=== PATIENT | male | born 1965 | race Caucasian/White ===

== ENCOUNTER 2017-09-17 10:24 | Outpatient (CLI) | payer BC | END 2017-09-17 10:25 | disposition home or self-care (01) | LOC: EKG 10:24 | PROVIDERS: ATTEND Urology | DX: N40.1 Benign prostatic hyperplasia with lower urinary tract symptoms (principal) | CPT/HCPCS: 93005; 93010 ==

== ENCOUNTER 2017-09-18 12:32 | Outpatient (CLI) | payer BC ==
[2017-09-18 13:45] LABS: Hemoglobin 16.3 g/dL (14.0-18.0); Mean Corpuscular HGB CONC 33.1 g/dL (32.0-36.0); Mean Corpuscular Hemoglobin 31.3 pg (27.0-31.0); Mean Corpuscular Volume 94.5 fl (80.0-94.0); Mean Platelet Volume 7.1 fL (7.4-10.4); Platelet Count 257 thou/uL (130-400); RBC Distribution Width 11.5 % (11.5-14.5); Red Blood Cell (RBC) Count 5.23 mill/uL (4.70-6.10)
[2017-09-18 14:06] LABS: Anion Gap 12 mmol/L (10-20); BUN (Urea Nitrogen) 10 mg/dL (8.4-25.7); Calc. Creatinine Clearance 0 mL/min (70-130); Carbon Dioxide 28 mmol/L (22-29); Chloride 104 mmol/L (98-107); Estimated GFR-MDRD Greater than 90; Glucose 91 mg/dL (70-105); Potassium 4.1 mmol/L (3.5-5.1); Sodium 140 mmol/L (136-145)
[2017-09-18 18:39] LABS: Bilirubin Negative (Negative); Blood, Urine Negative (Negative); Clarity CLEAR (Clear); Glucose, Urine (Dipstick) Negative (Negative); Leukocyte Negative (Negative); Nitrite Negative (Negative); Protein, Urine (Dipstick) Negative (Neg-Trace); Specific Gravity, Urine 1.022 (1.002-1.036); pH, Urine 7.5 (5.0-9.0)
[2017-09-18 18:42] LABS: Bacteria/HPF None Seen HPF (None Seen); Hyaline Casts/LPF 0-3 HYALINE CAST LPF (0-3 Hyaline); Pathc Cast-AUWi Flag 0.13 (0-2.49); RBC/HPF 0-3 HPF (0-3); Squamous Epithelial None Seen HPF (0-3); WBC/HPF 0-3 HPF (0-3)
== END 2017-09-18 12:33 | disposition home or self-care (01) ==
LOC: LABBT 12:32
PROVIDERS: ATTEND Urology
DX: Z01.812 Encounter for preprocedural laboratory examination (principal); N40.0 Benign prostatic hyperplasia without lower urinary tract symptoms; N21.0 Calculus in bladder
CPT/HCPCS: 80048; 81001; 85027

== ENCOUNTER 2017-09-24 07:26 | Day surgery (SDC) | payer BC ==
[2017-09-18 13:00] VITALS: BMI 29.9
[2017-09-24] MEDS ORDERED: Levofloxacin 500 mg/D5W 100 ml Premix Bag ONE (09:43)
[2017-09-24] MEDS ORDERED: Dexamethasone 4 mg/ml Vial ONE (09:45)
[2017-09-24] MEDS ORDERED: Furosemide 20 MG/2 ML VIAL ONE (10:53)
[2017-09-24] MEDS ORDERED: B & O ONE (10:53)
[2017-09-24] MEDS ORDERED: Fentanyl 100 MCG/2 ML VIAL ONE (11:04)
[2017-09-24] MEDS ORDERED: Midazolam HCl 2 mg/2 ml Vial ONE (11:04)
[2017-09-24] MEDS ORDERED: Ketorolac Tromethamine 30 MG/ML VIAL ONE (14:19)
--- NOTE | 2017-09-24 14:26 | OP ---
DATE OF PROCEDURE: 09/24/2017 PREOPERATIVE DIAGNOSES: Bladder stone and benign prostatic hypertrophy. POSTOPERATIVE DIAGNOSES: Passed bladder stone with only bladder crystals remaining as well as benign prostatic hypertrophy. SURGEON: Jacquie Mcgregor M.D. ANESTHESIA: General with laryngeal mask airway. FINDINGS: No significant bilateral stone. Adequate resection of the prostate using 91,069 joules. SPECIMENS: Prostate. BLOOD LOSS: Minimal. DRAINS REMAININ-Dominican 2-way. The patient was brought to the room by Anesthesia, laid on the table in supine position. After recei ving no significant medications he reported some chest pains so this was investigated by Anesthesia. He felt that it was more related to anxiety as the EKG had no changes, so the procedure continued. He underwent general anesthetic with laryngeal mask airway and then was positioned in lithotomy and p repped and draped in sterile fashion. Using a 22.5 Dominican cystoscope and 30 degree lens the bladder inspected. There were no obvious large stones. There were multiple small crystals, otherwise no obv ious stone noted. So attention was turned to the prostate were a total of 91,069 joules were used. The lateral lobes were enucleated with a couple chips larger and I used a grasper to remove them. Wh en the scope was removed a good stream was noted. Scope was put back in and bladder decompressed. H emostasis was ensured. The prostate bed was then further vaporized at a lower power for hemostasis. The bladder neck was a little thin, so I left a wire in place after removing the cystoscope and made the catheter a Councill and placed over wire without difficulty. The patient was then awakened and transferred to the PACU in stable condition.
[2017-09-24] MEDS ORDERED: Ondansetron HCl/PF 4 MG/2 ML Vial ONE (16:24)
[2017-09-24] MEDS ORDERED: Metoclopramide HCl 10 MG/2 ML VIAL ONE (16:24)
[2017-09-24] MEDS ORDERED: diphenhydrAMINE 50 MG/ML VIAL ONE (16:24)
[2017-09-24] MEDS ORDERED: Propofol 200 MG/20 ML VIAL ONE (16:24)
[2017-09-24] MEDS ORDERED: PHENYLEPHRINE-NS 100 MCG/ML 10 ML SYRINGE ONE (16:24)
[2017-09-24] MEDS ORDERED: Lidocaine 1% PF 5 ML VIAL ONE (16:24)
[2017-09-24] MEDS ORDERED: Acetaminophen/Codeine 30-300mg Tablet ONE (17:04)
== END 2017-09-24 17:20 | disposition home or self-care (01) ==
LOC: SDC 07:26
PROVIDERS: ATTEND Urology
PROC: 0V507ZZ Destruction of Prostate, Via Natural or Artificial Opening (ICD-10-PCS; principal; 2017-09-24)
DX: N40.1 Benign prostatic hyperplasia with lower urinary tract symptoms (principal); R35.0 Frequency of micturition; R39.11 Hesitancy of micturition; R39.14 Feeling of incomplete bladder emptying; R35.1 Nocturia; R39.12 Poor urinary stream; J45.909 Unspecified asthma, uncomplicated; J44.9 Chronic obstructive pulmonary disease, unspecified; E78.5 Hyperlipidemia, unspecified; I10 Essential (primary) hypertension; K21.9 Gastro-esophageal reflux disease without esophagitis; H91.90 Unspecified hearing loss, unspecified ear; F17.210 Nicotine dependence, cigarettes, uncomplicated; F10.11 Alcohol abuse, in remission; Z79.82 Long term (current) use of aspirin; Z79.899 Other long term (current) drug therapy; Z88.5 Allergy status to narcotic agent; Z98.818 Other dental procedure status; Z98.890 Other specified postprocedural states; Z87.01 Personal history of pneumonia (recurrent)
CPT/HCPCS: 88305; 96374; J0131; J1100; J1200; J1885; J1940; J1956; J2001; J2250; J2405; J2704; J2765; J3010

== ENCOUNTER 2022-12-11 09:16 | Emergency (ER) | payer BC ==
[2022-12-11 10:04] LABS: #Basophils 0.1 thou/uL (0.0-0.2); #Eosinphils 0.3 thou/uL (0.0-0.7); #Lymphocytes 1.5 thou/uL (1.20-3.40); #Monocytes 0.7 thou/uL (0.11-0.59); #Neutrophils 3.9 thou/uL (1.40-6.50); %Basophils 1.2 % (0.0-1.0); %Eosinophils 5.2 % (0.0-10.0); %Lymphocytes 22.8 % (21.0-51.0); %Monocytes 11.3 % (0.0-10.0); %Neutrophils 59.5 % (42.0-75.0); Hemoglobin 15.4 g/dL (14.0-18.0); Mean Corpuscular HGB CONC 34.4 g/dL (32.0-36.0); Mean Corpuscular Volume 95.8 fl (78.0-98.0); Platelet Count 172 10x3/uL (130-400); RBC Distribution Width 11.8 % (11.5-14.5); Red Blood Cell (RBC) Count 4.66 mill/uL (4.70-6.10); White Blood Cell (WBC) Count 6.5 10x3/uL (4.8-10.8)
[2022-12-11 10:26] LABS: ALT (SGPT) 22 U/L (8-55); AST (SGOT) 24 U/L (5-34); Albumin 4.3 g/dL (3.5-5.0); Alkaline Phosphatase 62 U/L (40-110); Anion Gap 11 mmol/L (10-20); BUN (Urea Nitrogen) 9 mg/dL (8.4-25.7); Bilirubin, Total 1.1 mg/dL (0.2-1.2); Calc. Creatinine Clearance 0 mL/min (70-130); Calcium 9.6 mg/dL (7.8-10.44); Carbon Dioxide 28 mmol/L (22-29); Chloride 105 mmol/L (98-107); Estimated GFR 101; Globulin 2.9 g/dL (2.4-3.5); Glucose 83 mg/dL (70-105); Lipase 32 U/L (8-78); Magnesium 1.7 mg/dL (1.6-2.6); Potassium 4.1 mmol/L (3.5-5.1); Protein, Total 7.2 g/dL (6.0-8.3); Sodium 140 mmol/L (136-145)
[2022-12-11] MEDS ORDERED: hydrALAZINE 20 MG/ML VIAL ONE (11:55)
[2022-12-11] MEDS ORDERED: Hydrochlorothiazide 25 MG TAB PO SCH (12:30)
[2022-12-11] MEDS ORDERED: Metoprolol Tartrate 100 MG TAB PO SCH (12:30)
== END 2022-12-11 12:46 | disposition home or self-care (01) ==
LOC: ERS 09:16
DX: I10 Essential (primary) hypertension (principal); J44.9 Chronic obstructive pulmonary disease, unspecified; F17.210 Nicotine dependence, cigarettes, uncomplicated; Z79.899 Other long term (current) drug therapy
CPT/HCPCS: 36415; 71045; 80053; 83690; 83735; 83880; 84484; 85025; 93005; 96374; J0360